=== PATIENT | male | born 1990 | race Caucasian/White ===

== ENCOUNTER 2025-04-10 13:44 | Emergency (ER) | payer OTHER, SELFPAY ==
[2025-04-10 14:00] VITALS: BP 150/98; PULSE 93; RESP 20; TEMP 36.6; O2SAT 99
--- NOTE | 2025-04-10 14:39 | ED.EYEPROB ---
HPI - Eye Problem General Chief complaint: Eye Problems Stated complaint: right swollen eye Time Seen by Provider: 04/10/25 14:41 Source: patient, RN notes reviewed and old records reviewed Mode of arrival: ambulatory Limitations: no limitations History of Present Illness HPI Narrative: 34-year-old male presents to the [facility] with concerns of the medial aspect right upper lid swelling without redness, pain, drainage, trauma. Denies any visual changes. Symptoms started yesterday Onset (ago): day(s) (1) Related Data Home Medications ?Medication ?Instructions ?Recorded ?Confirmed ?Last Taken ?Type carbamazepine 200 mg 400 mg PO Q12H 09/08/21 10/01/23 Unknown History capsule,extended release [id number] divalproex 500 mg tablet,delayed 500 mg PO Q12H 09/08/21 10/01/23 Unknown History release ergocalciferol (vitamin D2) 1,250 1,250 mcg PO WEEKLY 09/08/21 10/01/23 Unknown History mcg (50,000 unit) capsule omega 0-ywj-auy-fish oil 300 1 cap PO DAILY 09/08/21 10/01/23 Unknown History mg-1,000 mg capsule (Fish Oil) quetiapine 300 mg tablet,extended 600 mg PO QHS 09/08/21 10/01/23 Unknown History release 24 hr Allergies Allergy/AdvReac Type Severity Reaction Status Date / Time risperidone (From Risperdal) AdvReac Mild mood swings Verified 04/10/25 14:29 loratadine (From Claritin) AdvReac adverse Verified 04/10/25 14:29 reaction Review of Systems Review of Systems: All systems reviewed & are unremarkable except as noted in HPI and below Constitutional: Constitutional: Reports no additional constitutional complaints Eyes: Eyes: Reports as per HPI ENT: Reports system reviewed and no additional complaints, except as documented Cardiovascular: Cardiovascular: Reports no additional cardiovascular complaints, Denies chest pain and Denies dyspnea Respiratory: Respiratory: Reports no additional respiratory complaints, Denies chest congestion, Denies cough and Denies dyspnea Musculoskeletal: Musculoskeletal: Reports no additional musculoskeletal complaints Integumentary/Breasts: Skin/Breast: Reports system reviewed and no additional complaints, except as docu PMFSH Past Medical History Medical History Drug addiction in remission Surgical History Surgical History History of cholecystectomy Family History Family History Father Bone marrow disease Grandparent Heart disease Social History Social History Smoking status: Never smoker Tobacco type: e-cigarettes/vaping Second hand tobacco smoke exposure: No Smoking end date: 10/18/20 Alcohol intake: former Substance use: former Substance use type: former substance user Living arrangements: with family Occupation/Education: occupation Additional occupation/education comments: ride operator Gender identity (if verbalized by the patient): Male Sexual Orientation (if Verbalized by the Patient): Straight or Heterosexual Spiritual care concerns: No Agree to blood products: Yes Comments At the time of my signature, I reviewed and agree with the nursing past medical, surgical, social, and family history. There is no relevant family history pertinent to the patient complaint. Exam Const: General: cooperative, healthy appearing, comfortable, no acute distress, well developed, alert and well nourished Nutritional Appearance: well nourished Orientation/consciousness: patient oriented x3 Limitations: no limitations HENMT: Head: normal to inspection Ears: hearing grossly normal bilaterally, external ears normal, TM's normal bilaterally, EAC's normal, mastoids normal and no periauricular adenopathy Eyes: General: appearance normal, both eyes and all related structures Visual [place]: normal visual carlisle by confrontation Alignment and Position: alignment normal Eyelids: eyelid abnormality Eyes/upper lids images:  1. Mild amount of swelling to the right medial upper eyelid without erythema. No increased warmth. No wounds. No stye is noted at this time Neck: Neck: normal visual inspection, full ROM, no lymphadenopathy and no meningeal signs Chest: Chest palpation & inspection: normal inspection of the chest Resp: Effort & Inspection: normal respiratory effort and able to speak in complete sentences Auscultation: clear to auscultation bilaterally, no crackles, no rales, no rhonchi and no wheezes Cardio: Rate: regular rate Skin: General skin exam: normal color and no rashes or lesions noted Neuro: General: patient oriented x3, gait normal, moves all extremities and no meningeal signs Cognition (Neuro): normal cognition Speech: normal speech Gait exam (Neuro): Normal gait present Extrem: General: normal to inspection, full ROM, capillary refill normal and normal gait Psych: Appearance: grossly normal and well kempt Mental Status: mental status grossly normal Speech and movement: Normal speech and movement present and Clear speech present Affect: normal affect Attitude: cooperative Course Course Level of Care: Express Care Visit Vital Signs Vital signs: Vital Signs Temperature 97.9 F 04/10/25 14:00 Pulse Rate 93 04/10/25 14:00 Respiratory Rate 20 04/10/25 14:00 Blood Pressure 150/98 H 04/10/25 14:00 Pulse Oximetry 99 04/10/25 14:00 Oxygen Delivery Room Air 04/10/25 14:00 Temperature 97.9 F 04/10/25 14:00 Pulse Rate 93 04/10/25 14:00 Respiratory Rate 20 04/10/25 14:00 Blood Pressure 150/98 H 04/10/25 14:00 Pulse Oximetry 99 04/10/25 14:00 Oxygen Delivery Room Air 04/10/25 14:00 Reviewed MDM - Eye Problem MDM Narrative Medical decision making narrative: Patient sitting in exam room. Patient is nontoxic, vitals stable. Patient presents with inflammation to the right upper eyelid. No acute findings other than minor swelling noted Patient is appropriate for outpatient treatment with close follow-up Discharge instructions reviewed with patient, as well as provided in writing per nursing staff. The instructions also include specific and strict return/GO TO THE ER as well as f/u information. All questions have been answered, and the patient deny any further questions with discharge and discharge plan. Some parts of this dictation were generated by voice recognition software and may contain typographical and/or grammatical inaccuracies. Differential Diagnosis Differential diagnosis: Likely conjunctivitis and other (Stye, blepharitis) Critical Care Time Critical Care Time Critical Care Time: No Discharge Plan Discharge Clinical Impression: Inflammation of eyelid, right Patient Disposition: Home Condition: Stable Instructions: Antibiotic Odalis Cross (ED) Additional Instructions: Apply a cool, damp compress to your affected eye. Be sure to use a clean cloth each time to avoid spreading the infection. Maintain good hygiene and only touch your eyes with freshly washed hands. You should follow-up with an eye doctor within the next 72 hours [facility]: [place]- [phone] [facility] [phone] [facility] [phone] [place]: [facility] [phone] or [phone] [facility] [phone] [facility] [phone] [facility] [phone] [facility]- [phone] Patient Language: Nicarag[place] Prescriptions: New erythromycin 5 mg/gram (0.5 %) ointment 0.5 inch RIGHT EYE TID Qty: 3.5 0RF No Action pantoprazole 40 mg tablet,delayed release (DR/EC) 40 mg PO DAILY Qty: 90 3RF imiquimod 5 % cream in packet 1 applic topical DAILY Qty: 12 0RF triamcinolone acetonide 0.1 % cream 1 applic topical BID Qty: 30 0RF omega 0-spy-ypp-fish oil [Fish Oil] 300-1,000 mg capsule 1 cap PO DAILY ergocalciferol (vitamin D2) 1,250 mcg (50,000 unit) capsule 1,250 mcg PO WEEKLY carbamazepine 200 mg capsule, ER multiphase 12 hr 400 mg PO Q12H divalproex 500 mg tablet,delayed release (DR/EC) 500 mg PO Q12H quetiapine 300 mg tablet extended release 24 hr 600 mg PO QHS levothyroxine 100 mcg tablet 100 mcg PO DAILY Qty: 90 1RF Follow-up/Referrals: Chaz Sellers MD [Primary Care Provider, Family Practice] - 2 Weeks Time of Disposition: 14:50
== END 2025-04-10 14:56 | disposition home or self-care (01) ==
PROVIDERS: Emergency Provider Nurse Practitioner; PCP Family Medicine Adolescent Medicine
DX: H01.9 Unspecified inflammation of eyelid (principal); Z87.891 Personal history of nicotine dependence
CPT/HCPCS: 99213; G0463